=== PATIENT | female | born 1995 | race Caucasian/White ===

== ENCOUNTER 2018-05-21 16:42 | Emergency (ER) | payer OTHER ==
[~2018-05-21] VITALS: Ht 165.1 cm; Wt 77.1 kg
[~2018-05-21 16:42] MED LIST: MICROGESTIN FE1 EAC1 PO; ONDANSETRON ODT8 M1 PO; ZOFRAN ODT4 M1 SL; ZOFRAN4 M2 PO
[2018-05-21 17:35] LABS: ABSOLUTE BASOPHIL COUNT 0 /CUMM (0.0-0.2); ABSOLUTE EOSINOPHIL COUNT 0.1 /CUMM (0.0-0.7); ABSOLUTE GRANULOCYTE CT 5.3 /CUMM (1.4-6.5); ABSOLUTE LYMPH COUNT 1.1 /CUMM (1.2-3.4); ABSOLUTE MONOCYTE COUNT 0.6 /CUMM (0.10-0.60); BASOPHIL % 0.4 % (0.0-2.0); EOSINOPHIL % 1.1 % (0-5); GRANULOCYTE % 74.7 % (42.2-75.2); HEMATOCRIT 37.4 % (37-47); MEAN CORPUSCULAR HGB 29.8 PG (27.0-31.0); MEAN CORPUSCULAR HGB CONC 33.7 G/DL (33.0-37.0); MEAN CORPUSCULAR VOLUME 88.5 FL (81.0-99.0); MEAN PLATELET VOLUME 9.2 FL (7.4-10.4); PLATELET COUNT 277 /CUMM (130-400); RBC DISTRIBUTION WIDTH 12.4 % (11.5-14.5); RED BLOOD CELL CT 4.22 /CUMM (4.20-5.40); WHITE BLOOD CELL COUNT 7.2 /CUMM (4.8-10.8)
[2018-05-21] MEDS ORDERED: IMITREX50 M1 PO (19:00)
[2018-05-21] MEDS ORDERED: ONDANSETRON HCL4 MG PO (19:00)
[2018-05-21] MEDS ORDERED: ALPRAZOLAM0.5 M4 PO (19:00)
[2018-05-21] MEDS ORDERED: MULTIVITAMINS1 EAC9 PO (19:00)
--- NOTE | 2018-05-21 19:00 | CT SCAN REPORT ---
EXAMINATION: CT ABDOMEN AND PELVIS WITHOUT CONTRAST CLINICAL INFORMATION: Diffuse abdominal pain; question urinary calculus. COMPARISON: Renal ultrasound dated 05/05/2016. TECHNIQUE: Multidetector volumetric imaging was performed from the superior aspect of the liver through the pubic symphysis. Sagittal and coronal reformatted images were obtained on the technologist's workstation. DLP: 352.69 mGy-cm FINDINGS: LUNG BASES: The visualized lung bases are unremarkable. LIVER, GALLBLADDER, AND BILIARY TREE: The liver is normal in size, shape, and attenuation. No focal hepatic lesion or biliary ductal dilatation is present. The gallbladder is unremarkable with no evidence of radiopaque gallstones, gallbladder wall thickening, or obvious pericholecystic inflammatory changes. PANCREAS: Unremarkable. SPLEEN: Unremarkable. ADRENAL GLANDS: Unremarkable. KIDNEYS AND URETERS: The kidneys are low normal in size, and normal in shape and attenuation. No hydronephrosis, hydroureter, or calculi seen. No perinephric stranding. BLADDER: Unremarkable. GASTROINTESTINAL TRACT: The small and large bowel are unremarkable. The appendix is unremarkable. ABDOMINAL WALL: No significant hernia is appreciated. LYMPH NODES: Normal. VASCULAR: Unremarkable. PELVIC VISCERA: Unremarkable. OSSEOUS STRUCTURES: Unremarkable. IMPRESSION: No significant abnormality.
[2018-05-21] MEDS ORDERED: VOLTAREN100 GM TOP (19:01)
--- NOTE | 2018-05-21 21:02 | ED GI/GU/ABDOMINAL COMPLAINT ---
History of Present Illness General Chief Complaint: Nausea, Vomiting, Diarrhea Stated Complaint: +NV, X 2 WEEKS Source: patient Exam Limitations: no limitations Vital Signs & Intake/Output Vital Signs & Intake/Output Vital Signs Date Time Temp Pulse Resp B/P B/P Pulse O2 O2 Flow FiO2 Mean Ox Delivery Rate 05/21 1910 97.4 95 18 141/90 100 Room Air 05/21 1759 Room Air 05/21 1648 98.7 88 18 128/87 97 Room Air Allergies Coded Allergies: amoxicillin (BLOODY RASH PER PT 05/21/18) Reconcile Medications Alprazolam 0.5 MG TABLET 1 TAB PO AD PRN ANXIETY (Reported) Diclofenac Sodium (Voltaren) 1 % GEL..GRAM. 1 TATO TOP AD PRN PAIN/INFLAMMATION (Reported) apply to affected area(s) Metoclopramide HCl (Reglan) 10 MG TABLET 1 TAB PO 4 TIMES/DAY PRN NAUSEA 30 minutes before meals and bedtime Multiple Vitamin (Multivitamins) 1 EACH TABLET 1 TAB PO DAILY SUPPLEMENT ( Reported) Norethindrone-E.estradiol-Iron (Microgestin Fe 1-20 Tablet) 1 EACH TABLET 1 TAB PO DAILY CONTROL (Reported) Ondansetron HCl 4 MG TABLET 1 TAB PO BID PRN N/V (Reported) Sumatriptan Succinate (Imitrex) 50 MG TABLET 1 TAB PO AD PRN MIGRAINES ( Reported) Triage Note: 22F GENERALLY WELL APPEARING REPORTS N/V X A FEW WEEKS WITH ASSOCIATED STOMACH ACHE AND BACK PAIN. REPORTS SHE HAS CKD BUT NOT FOLLOWED BY A FISCAL SERVICES DIRECTOR. HAS BEEN UNABLE TO HOLD DOWN WATER THE LAST DAY OR SO. TAKING PRN'S WITHOUT RELIEF. VSS. INTERMITTENT DIZZINESS Triage Nurses Notes Reviewed? yes LMP (ages 10-50): unknown ? N Is pt currently ? No Onset: Abrupt Duration: day(s): (3), constant, continues in ED, getting worse Timing: single episode today Quality/Severity: cramping, vomiting Location: generalized abdomen Radiation: no radiation Past Sexual History: Unobtainable at this time No Modifying Factors: none HPI: 22-year-old female history of chronic kidney disease presents for evaluation of nausea vomiting and abdominal pain. Patient reports that her symptoms started 2 or 3 days ago been persistent. She reports that because of her chronic kidney disease she has a history of similar symptoms. She states several times per month she will have similar episodes. She states she has had multiple episodes of vomiting and has not been tolerating fluids. No diarrhea. She states currently she has no abdominal pain but she will get some intermittent abdominal cramping. The pain is worse in the epigastric area but is located in her generalized abdomen. She denies any fever or shortness of breath chest pain hematuria dysuria frequency urgency vaginal discharge or bleeding. She has not been seen by a survey and mapping technician. She's been taking Zofran at home without improvement. (Evan Cuellar) Past History Travel History Traveled to [place] past 21 day No Medical History Any Pertinent Medical History? see below for history Neurological: NONE EENT: NONE Cardiovascular: NONE Respiratory: NONE Gastrointestinal: NONE Hepatic: NONE Renal: chronic kidney disease Musculoskeletal: NONE Psychiatric: NONE Endocrine: NONE Blood Disorders: NONE Cancer(s): NONE BILLING REP/Reproductive: NONE History of MRSA: No History of VRE: No History of CDIFF: No Surgical History Surgical History: kidney biopsy Psychosocial History Who do you live with Father Services at Home None What is your primary language Vietnamese Tobacco Use: Never used ETOH Use: occasional use Illicit Drug Use: denies illicit drug use Family History Hx Contributory? No (Evan Cuellar) Review of Systems Review of Systems Constitutional: Reports: no symptoms. EENTM: Reports: no symptoms. Respiratory: Reports: no symptoms. Cardiovascular: Reports: no symptoms. GI: Reports: see HPI, abdominal pain, nausea, vomiting. Genitourinary: Reports: no symptoms. Musculoskeletal: Reports: no symptoms. Skin: Reports: no symptoms. Neurological/Psychological: Reports: no symptoms. Hematologic/Endocrine: Reports: no symptoms. Immunologic/Allergic: Reports: no symptoms. All Other Systems: Reviewed and Negative (Evan Cuellar) Physical Exam Physical Exam General Appearance: well developed/nourished, no apparent distress, alert, awake Head: atraumatic, normal appearance Eyes: Bilateral: normal appearance, PERRL, EOMI. Ears, Nose, Throat, Mouth: moist mucous membrane Neck: normal inspection, supple, full range of motion Respiratory: normal breath sounds, chest non-tender, no respiratory distress, lungs clear Cardiovascular: regular rate/rhythm, normal peripheral pulses Peripheral Pulses: 2+ radial (R), 2+ radial (L) Gastrointestinal: normal bowel sounds, soft, non-tender, no organomegaly Back: normal inspection, normal range of motion, no vertebral tenderness, NO CVAT Extremities: normal range of motion Neurologic/Psych: no motor/sensory deficits, awake, alert, oriented x 3, normal gait Skin: intact, normal color, warm/dry Core Measures ACS in differential dx? No Sepsis Present: No Sepsis Focused Exam Completed? No (Evan Cuellar) Progress Differential Diagnosis: appendicitis, biliary colic, bowel obstruction, colon cancer, cholecystitis, diverticulitis, ectopic , gastritis, ischemic bowel, inflamm bowel dis, intrauterine , kidney stone, ovarian cyst, pancreatitis, PID/cervicitis, peptic ulcer, PUD/GERD, SBO, threatened AB, UTI/ pyelo Plan of Care: Orders Procedure Date/time Status BASIC METABOLIC PANEL 05/21 194 Complete URINE 05/21 164 Complete URINALYSIS 05/21 164 Complete LIPASE 05/21 164 Complete COMPREHENSIVE METABOLIC PANEL 05/21 164 Complete CBC WITHOUT DIFFERENTIAL 05/21 164 Complete Current Medications Sig/Stefania Start time Last Medication Dose Stop Time Status Admin Ondansetron HCl 4 MG ONCE ONE 05/21 1700 CAN (Zofran) 05/21 1701 Laboratory Tests 05/21/18 2000: Anion Gap 9, Estimated GFR 19 L, BUN/Creatinine Ratio 8.0, Glucose 87, Calcium 8.4 05/21/18 1737: Urine Color YEL, Urine Clarity HAZY H, Urine pH 7.0, Ur Specific [place] 1.020, Urine Protein >=300 H, Urine Ketones NEG, Urine Nitrite NEG, Urine Bilirubin NEG, Urine Urobilinogen 0.2, Ur Leukocyte Esterase NEG, Ur Microscopic SEDIMENT EXAMINED, Urine RBC 1-3, Urine WBC 1-3 H, Ur Epithelial Cells MOD H, Urine Bacteria MOD H, Urine Mucus RARE, Urine Hemoglobin SMALL H, Urine Glucose NEG, Urine Test NEGATIVE 05/21/18 1727: Anion Gap 10, Estimated GFR 17 L, BUN/Creatinine Ratio 7.9, Glucose 96, Calcium 9.6, Total Bilirubin 0.4, AST 25, ALT 31, Alkaline Phosphatase 110, Total Protein 7.2, Albumin 4.5, Globulin 2.7, Albumin/Globulin Ratio 1.7, Lipase 139, CBC w Diff NO MAN DIFF REQ, RBC 4.22, MCV 88.5, MCH 29.8, MCHC 33.7, RDW 12.4, MPV 9.2, Gran % 74.7, Lymphocytes % 15.8 L, Monocytes % 8.0, Eosinophils % 1.1, Basophils % 0.4, Absolute Granulocytes 5.3, Absolute Lymphocytes 1.1 L, Absolute Monocytes 0.6, Absolute Eosinophils 0.1, Absolute Basophils 0 Patient is here for evaluation of nausea vomiting and abdominal cramping. On exam her abdomen currently is soft and nontender. She appears clinically well no active vomiting. She denies diarrhea fever. Patient reports she has had multiple similar episodes in the past related to her chronic kidney disease. She states that she currently does not see a survey and mapping technician has an appointment at the end of this month. The etiology of her chronic kidney disease is unknown. Previous labs from last year show creatinines in the MID 2S. she denies urinary symptoms chest pain or shortness of breath. Labs ordered patient medicated with fluids and IV Reglan. IV Tylenol for pain. Shows initial creatinine of 3.4 and BUN of 17. Normal potassium. CT scan was obtained and is negative of the abdomen and pelvis. No signs of urine infection. On reevaluation patient is feeling better. She is tolerating fluids. Patient will get additional liter of normal saline and a basic metabolic panel be rechecked. Repeat basic metabolic panel shows a creatinine of 3. Patient is able tolerate fluids there's been no vomiting in the emergency department. Patient will be discharged home with a prescription for Reglan. Advised to continue to also use Zofran drink plenty of fluids. Follow-up with primary care doctor and survey and mapping technician. See the primary care doctor in 2 or 3 days for repeat blood work. Discussed return precautions in detail patient agrees the plan case discussed with Dr. Braxton he agrees Diagnostic Imaging: Viewed by Me: CT Scan. Discussed w/RAD: CT Scan. Radiology Impression: PATIENT: HILDA ADAMS PRESENT AGE: 22 PATIENT ACCOUNT NO: [id number] : 93 LOCATION: [facility] ORDERING PHYSICIAN: Evan BRYANT SERVICE DATE: 05/21/18 EXAM TYPE: CAT - CT ABD & PELVIS W/O IV CONTRAS EXAMINATION: CT ABDOMEN AND PELVIS WITHOUT CONTRAST CLINICAL INFORMATION: Diffuse abdominal pain; question urinary calculus. COMPARISON: Renal ultrasound dated 05/05/2016. TECHNIQUE: Multidetector volumetric imaging was performed from the superior aspect of the liver through the pubic symphysis. Sagittal and coronal reformatted images were obtained on the technologist's workstation. DLP: 352.69 mGy-cm FINDINGS: LUNG BASES: The visualized lung bases are unremarkable. LIVER, GALLBLADDER, AND BILIARY TREE: The liver is normal in size, shape, and attenuation. No focal hepatic lesion or biliary ductal dilatation is present. The gallbladder is unremarkable with no evidence of radiopaque gallstones, gallbladder wall thickening, or obvious pericholecystic inflammatory changes. PANCREAS: Unremarkable. SPLEEN: Unremarkable. ADRENAL GLANDS: Unremarkable. KIDNEYS AND URETERS: The kidneys are low normal in size, and normal in shape and attenuation. No hydronephrosis, hydroureter, or calculi seen. No perinephric stranding. BLADDER: Unremarkable. GASTROINTESTINAL TRACT: The small and large bowel are unremarkable. The appendix is unremarkable. ABDOMINAL WALL: No significant hernia is appreciated. LYMPH NODES: Normal. VASCULAR: Unremarkable. PELVIC VISCERA: Unremarkable. OSSEOUS STRUCTURES: Unremarkable. IMPRESSION: No significant abnormality. DICTATED BY: Guzman Jacobo MD DATE/TIME DICTATED:05/21/181850 JEWELRY BENCH MOLDER:RUPALI DATE/TIME TRANSCRIBED:05/21/181850 CONFIDENTIAL, DO NOT COPY WITHOUT APPROPRIATE AUTHORIZATION. <Electronically signed in Other Vendor System> SIGNED BY: Guzman Jacobo MD 05/21/18 190 Initial ED EKG: none (Evan Cuellar) Departure Departure Disposition: HOME OR SELF CARE Condition: Stable Clinical Impression Primary Impression: Nausea & vomiting Qualifiers: Vomiting type: unspecified Vomiting Intractability: non-intractable Qualified Code: R11.2 - Nausea with vomiting, unspecified Referrals: Dwain Shahid MD (PCP/Family) Additional Instructions: Rest and drink plenty of fluids. Zofran and Reglan as needed for nausea. Make a follow-up with her primary care doctor for repeat blood work in a couple days. Follow-up with your survey and mapping technician. Monitor your symptoms return with any concerns. Departure Forms: Customer Survey General Discharge Information Prescriptions: Current Visit Scripts Metoclopramide HCl (Reglan) 1 TAB PO 4 TIMES/DAY PRN NAUSEA #30 TAB 30 minutes before meals and bedtime (Evan Cuellar) PA/AURICULOTHERAPIST Co-Sign Statement Statement: ED Attending supervision documentation- [] I saw and evaluated the patient. I have also reviewed all the pertinent lab results and diagnostic results. I agree with the findings and the plan of care as documented in the PA's/AURICULOTHERAPIST's documentation. [X] I have reviewed the ED Record and agree with the PA's/AURICULOTHERAPIST's documentation. [] Additions or exceptions (if any) to the PAs/AURICULOTHERAPIST's note and plan are summarized below: [] (Fox LEMONS,Robbie Fenton)
[2018-05-21] MEDS ORDERED: REGLAN10 M1 PO (21:18)
[2018-05-21 21:27] VITALS: BP 131/93
== END 2018-05-21 21:28 ==
LOC: ERH 16:42
PROVIDERS: Physician Assistant Medical
DX: R11.2 Nausea with vomiting, unspecified (principal); R10.9 Unspecified abdominal pain
CPT/HCPCS: 74176; 81001; 81025; 96361; 96374; 96375; J0131; J2765